=== PATIENT | female | born 1950 | race Caucasian/White ===

== ENCOUNTER → 2016-08-29 | Outpatient (CLI) | payer MEDICARE ==
--- NOTE | 2016-08-30 10:21 | MM ---
Reason for exam: screening (asymptomatic). Last mammogram was performed 3 years and 1 month ago. History: Patient is postmenopausal. Family history of breast cancer in aunt. Benign excisional biopsy of the right breast, March 17, 1998. Physical Findings: A clinical breast exam by your physician is recommended on an annual basis and results should be correlated with mammographic findings. MG 3D Screening Mammo W/Cad Bilateral CC and MLO view(s) were taken. Prior study comparison: August 12, 2013, bilateral digital screening mammo w/CAD. August 01, 2007, bilateral diagnostic digital mammog. The breast tissue is heterogeneously dense. This may lower the sensitivity of mammography. No significant changes when compared with prior studies. ASSESSMENT: Benign, BI-RAD 2 RECOMMENDATION: Routine screening mammogram of both breasts in 1 year.
--- NOTE | 2016-08-30 11:44 | BD ---
EXAMINATION TYPE: MG DEXA axial skeleton. DATE OF EXAM: 08/29/2016 3:36 PM COMPARISON: NONE CLINICAL HISTORY: Z78.0 Asymp [place] Height: 5 ft 8 in Weight: 165 FRAX RISK QUESTIONS: Alcohol (3 or more units per day): YES Family History (Parent hip fracture): NO Glucocorticoids (More than 3mos): NO (Ex: prednisone, prednisolone, methylprednisolone, dexamethasone, and hydrocortisone). History of Fracture in Adulthood: YES Secondary Osteoporosis: 1. Type 1 Diabetes: NO 2. Hyperthyroidism: NO 3. Menopause before 45: NO 4. Malnutrition: NO 5. Chronic liver disease: NO Rheumatoid Arthritis: NO Current Tobacco Use: NO RISK FACTORS HISTORY OF: Surgery to Spine/Hip(right/left)/Wrist (right/left): LT HIP REPLACED When: 2008 Drink Alcohol: RARELY Active: YES Postmenopausal woman: AGE 53 Lost more than 2 inches in height since high school: YES MEDICATIONS: Thyroid Medications: YES Which medication: SYNTHROID How Long: APPROX 15 YRS Additional History: EXAM MEASUREMENTS: Bone mineral densitometry was performed using the [employer] System. Bone mineral density as measured about the Lumbar spine is: ----- L1-L4(G/cm2): 1.141 T Score Values are as follows: ----- L2: -0.3 ----- L3: -0.6 ----- L4: -0.6 ----- L1-L4: -0.3 BASELINE Bone mineral density about the R hip (g/cm2): 0.766 T Score values are as follows: -----R Neck: -2.0 -----R Intertrochanter: -2.2 BASELINE IMPRESSION: Osteopenia (T Score between -2.5 and -1 as noted by T score values There is slightly increased risk of fracture and the patient may be considered for treatment. Re-Screen 1-2 years. RT FEMUR NOTE: T-SCORE=SD OF THE YOUNG ADULT MEAN.
== END | disposition home or self-care (01) ==
LOC: RADMAMWWP 15:31
PROVIDERS: ATTEND Family Medicine
DX: Z12.31 Encounter for screening mammogram for malignant neoplasm of breast (principal); M85.80 Other specified disorders of bone density and structure, unspecified site; Z78.0 Asymptomatic menopausal state
CPT/HCPCS: 77080; 77063; G0202

== ENCOUNTER 2017-12-12 18:42 | Emergency (ER) | payer MEDICARE ==
[2017-12-12 19:13] VITALS: BP 104/63; PULSE 81; RESP 18; TEMP 98.3
[2017-12-12] MEDS ORDERED: HYDROcodone/APAP 5-325MG 1 EACH TAB PO STA (21:15)
--- NOTE | 2017-12-12 22:09 | ED ---
General Adult HPI - General Chief complaint: Animal Bite Stated complaint: Cat Bite Time Seen by Provider: 12/12/17 21:06 Source: patient, RN notes reviewed Mode of arrival: ambulatory Limitations: no limitations - History of Present Illness Initial comments: 67-year-old female presents to the emergency department for a chief complaint of cat bite to the left forearm times 3 hours. Patient was washing her cat when he bit her in the forearm. Patient denies any difficulty moving the forearm. Patient denies any fevers or chills. Patient denies any Bites elsewhere. Patient states the cat is up-to-date on immunizations. Patient states her tetanus is up-to-date as of 4 years ago. Patient has no other complaints at this time including shortness of breath, chest pain, abdominal pain, nausea or vomiting, headache, or visual changes. - Related Data Home Medications Medication Instructions Recorded Confirmed Butalb/Acetaminophen/Caffeine 1 - 2 each PO Q4HR 09/05/14 05/12/15 [Fioricet 50-300-40 mg Capsule] Levothyroxine Sodium [Synthroid] 25 mcg PO DAILY 09/05/14 05/12/15 Zolpidem [Ambien] 10 mg PO HS PRN 09/05/14 05/12/15 Previous Rx's Medication Instructions Recorded Ondansetron Odt [Zofran ODT] 4 mg PO Q8HR PRN #10 tab 05/12/15 Doxycycline Hyclate 100 mg PO BID 14 Days tab 12/12/17 Ibuprofen [Motrin] 600 mg PO Q8HR PRN #20 tab 12/12/17 Allergies Allergy/AdvReac Type Severity Reaction Status Date / Time No Known Allergies Allergy Verified 12/12/17 19:12 Review of Systems ROS Statement: Those systems with pertinent positive or pertinent negative responses have been documented in the HPI. ROS Other: All systems not noted in ROS Statement are negative. Past Medical History Past Medical History: Thyroid Disorder Additional Past Medical History / Comment(s): chronic back pain History of Any Multi-Drug Resistant Organisms: None Reported Past Surgical History: Orthopedic Surgery, Tubal Ligation Additional Past Surgical History / Comment(s): partial thyroidectomy, cyst removal on right breast. Past Psychological History: No Psychological Hx Reported Smoking Status: Former smoker Past Alcohol Use History: Rare Past Drug Use History: None Reported General Exam Limitations: no limitations General appearance: alert, in no apparent distress Head exam: Present: atraumatic Eye exam: Present: normal appearance. Absent: scleral icterus, conjunctival injection Neck exam: Present: normal inspection, full ROM. Absent: tenderness, meningismus, lymphadenopathy Respiratory exam: Present: normal lung sounds bilaterally. Absent: respiratory distress, wheezes, rales, rhonchi, stridor Cardiovascular Exam: Present: regular rate, normal rhythm, normal heart sounds. Absent: systolic murmur, diastolic murmur, rubs, gallop, clicks Extremities exam: Present: full ROM (Full range of motion of all digits in the left digits, hand, and wrist), tenderness (Mild tenderness to the area of lacerations. no tenderness over the tendons.), normal capillary refill ( Capillary refill less than 2 seconds and radial pulse 2+ in the left upper extremity), other (Patient has 7 small puncture wounds less than 0.5 cm each left distal forearm.). Absent: pedal edema, joint swelling Course Vital Signs 12/12/17 19:10 Temperature 98.3 F Pulse Rate 81 Respiratory 18 Rate Blood Pressure 104/63 O2 Sat by Pulse 98 Oximetry Medical Decision Making - Medical Decision Making 67-year-old female presents to the emergency department for a chief complaint of cat bite in the right wrist. This happened 3 hours ago. No fevers or chills. On exam patient has full range of motion of the right upper extremity. He has about 7 small rupture wounds that will be left open to drain. Discussed the high risk of infection. Patient cannot take Augmentin because she becomes persistently nauseous and vomits. She will be given doxycycline instead as a second choice. She was educated to follow-up with primary care in a few days to have a wound recheck. She is to return to the emergency Department if she has any worsening symptoms such as drainage, spreading redness , streaking redness or fever. She is to take Motrin or Tylenol for pain. Disposition Clinical Impression: Cat bite Disposition: HOME SELF-CARE Condition: Good Instructions: Animal Bite (ED) Additional Instructions: Please take antibiotic as directed. Please take Motrin or Tylenol for pain. Please follow-up with primary care in 1-2 days for a recheck of the wound. Return to the emergency department if you have any worsening symptoms such as drainage, spreading redness, streaking redness or fever. Prescriptions: Doxycycline Hyclate 100 mg PO BID 14 Days tab Ibuprofen [Motrin] 600 mg PO Q8HR PRN #20 tab PRN Reason: Pain Is patient prescribed a controlled substance at d/c from ED?: No Referrals: Tanmay So MD [Primary Care Provider] - 1-2 days Time of Disposition: 22:07
[2017-12-12] MEDS ORDERED: DOXYCYCLINE 50 MG CAP PO STA (22:12)
== END 2017-12-12 22:23 | disposition home or self-care (01) ==
LOC: SUPCPDRO 18:42 → EC 18:42
DX: S51.832A Puncture wound without foreign body of left forearm, initial encounter (principal); E07.9 Disorder of thyroid, unspecified; Z79.899 Other long term (current) drug therapy; Z87.891 Personal history of nicotine dependence; W55.01XA Bitten by cat, initial encounter; Y93.89 Activity, other specified
CPT/HCPCS: 99283

== ENCOUNTER 2024-04-21 17:42 | Emergency (ER) | payer MEDICARE ==
[2024-04-21 17:58] VITALS: RESP 18; TEMP 97.6
--- NOTE | 2024-04-21 18:18 | ED ---
General Adult HPI - General Chief complaint: Abdominal Pain Stated complaint: flank pain Time Seen by Provider: 04/21/24 17:44 Source: patient, EMS, RN notes reviewed Mode of arrival: EMS Limitations: no limitations - History of Present Illness Initial comments: Patient is a 73-year-old female presenting to the emergency department with abdominal complaints. Onset of symptoms was around 4 PM. Patient had sudden abdominal cramping and nausea. Patient did have an episode of diarrhea. Cramping resolved after that. Patient did have nausea and 1 or 2 episodes of dry heaves with possible small emesis. Patient is feeling much better at this time following Zofran and Toradol by EMS. No fever. Patient does have history of hiatal hernia. - Related Data Home Medications Medication Instructions Recorded Confirmed Butalb/Acetaminophen/Caffeine 1 - 2 each PO Q4HR 09/05/14 05/12/15 [Fioricet 50-300-40 mg Capsule] Levothyroxine Sodium [Synthroid] 25 mcg PO DAILY 09/05/14 05/12/15 Zolpidem [Ambien] 10 mg PO HS PRN 09/05/14 05/12/15 Previous Rx's Medication Instructions Recorded Ondansetron Odt [Zofran ODT] 4 mg PO Q8HR PRN #10 tab 05/12/15 Doxycycline Hyclate 100 mg PO BID 14 Days tab 12/12/17 Ibuprofen [Motrin] 600 mg PO Q8HR PRN #20 tab 12/12/17 Dicyclomine [Bentyl] 20 mg PO QID PRN #15 tablet 04/21/24 Ondansetron Odt [Zofran Odt] 4 mg PO Q8HR PRN #10 tab 04/21/24 Allergies Allergy/AdvReac Type Severity Reaction Status Date / Time bee venom protein (honey bee) Allergy Severe Swelling Verified 04/21/24 17:58 Review of Systems ROS Statement: Those systems with pertinent positive or pertinent negative responses have been documented in the HPI. ROS Other: All systems not noted in ROS Statement are negative. Constitutional: Denies: fever Eyes: Denies: eye pain ENT: Denies: ear pain Respiratory: Denies: cough, dyspnea Cardiovascular: Denies: chest pain Endocrine: Denies: fatigue Gastrointestinal: Reports: as per HPI, nausea, vomiting, diarrhea Musculoskeletal: Denies: back pain Skin: Denies: rash Neurological: Denies: weakness Past Medical History Past Medical History: Thyroid Disorder Additional Past Medical History / Comment(s): chronic back pain History of Any Multi-Drug Resistant Organisms: None Reported Past Surgical History: Orthopedic Surgery, Tubal Ligation Additional Past Surgical History / Comment(s): partial thyroidectomy, cyst pili [place] on right breast. Past Psychological History: No Psychological Hx Reported Smoking Status: Former smoker Past Alcohol Use History: Rare Past Drug Use History: None Reported General Exam Limitations: no limitations General appearance: alert, in no apparent distress Head exam: Present: normocephalic Eye exam: Present: normal appearance Neck exam: Present: normal inspection Respiratory exam: Present: normal lung sounds bilaterally Cardiovascular Exam: Present: regular rate, normal rhythm Expanded Peripheral pulses: 2+: Radial (R), Radial (L), Posterior Tibialis (R), Posterior Tibialis (L) GI/Abdominal exam: Present: soft, normal bowel sounds. Absent: distended, tenderness, guarding, rebound, rigid, pulsatile mass Extremities exam: Present: normal inspection Neurological exam: Present: alert Psychiatric exam: Present: normal affect, normal mood Skin exam: Present: normal color Course Vital Signs 04/21/24 17:44 Temperature 97.6 F Pulse Rate 71 Respiratory 18 Rate Blood Pressure 123/72 O2 Sat by Pulse 99 Oximetry Medical Decision Making - Medical Decision Making Was pt. sent in by a medical professional or institution (Dr. PA, GETTER WELDER, urgent care, hospital, or assisted...) When possible be specific @ -No Did you speak to anyone other than the patient for history (EMS, parent, family, police, friend...)? What history was obtained from this source @ -No Did you review nursing and triage notes (agree or disagree)? Why? @ -I reviewed and agree with nursing and triage notes Were old charts reviewed (outside hosp., previous admission, EMS record, old EKG, old radiological studies, urgent care reports/EKG's, assisted records)? Report findings @ -No old charts were reviewed Differential Diagnosis (chest pain, altered mental status, abdominal pain women, abdominal pain men, vaginal bleeding, weakness, fever, dyspnea, syncope, headache, dizziness, GI bleed, back pain, seizure, CVA, palpatations, mental health, musculoskeletal)? @ -Differential Abdominal Pain Women: Appendicitis, Cholecystitis, diverticulosis, ischemic bowel, pancreatitis, hepatitis, UTI, gastroenteritis, AAA, incarcerated hernia, bowel obstruction, constipation, inflammatory bowel, hepatitis, peptic ulcer disease, splenic infa rction, perforated viscus, vulvitis, ovarian torsion, PID, kidney stone, placenta abruption, this is not meant to be an all-inclusive list EKG interpreted by me (3pts min.). @ -As above X-rays interpreted by me (1pt min.). @ -Abdominal x-ray does not reveal any acute abnormality CT interpreted by me (1pt min.). @ -None done U/S interpreted by me (1pt. min.). @ -None done What testing was considered but not performed or refused? (CT, X-rays, U/S, labs)? Why? @ -None What meds were considered but not given or refused? Why? @ -None Did you discuss the management of the patient with other professionals (professionals i.e. , PA, GETTER WELDER, lab, RT, psych nurse, manager social media, sports book writer, teacher, immigration officer, case resource manager)? Give summary @ -No Was smoking cessation discussed for >3mins.? @ -No Was critical care preformed (if so, how long)? @ -No Were there social determinants of health that impacted care today? How? (Homelessness, low income, unemployed, alcoholism, drug addiction, natarajan sportation, low edu. Level, literacy, decrease access to med. care, custodial, rehab)? @ -No Was there de-escalation of care discussed even if they declined (Discuss DNR or withdrawal of care, Hospice)? DNR status @ -No What co-morbidities impacted this encounter? (DM, HTN, Smoking, COPD, CAD, Cancer, CVA, ARF, Chemo, Hep., AIDS, mental health diagnosis, sleep apnea, morbid obesity)? @ -None Was patient admitted / discharged? Hospital course, mention meds given and route, prescriptions, significant lab abnormalities, going to OR and other pertinent info. @ -Patient presents with abdominal cramping, diarrhea and nausea. Symptoms improved on arrival. Symptoms resolved on reevaluation. Abdomen is soft and nontender. Patient will be discharged and recommended follow-up Undiagnosed new problem with uncertain prognosis? @ -No Drug Therapy requiring intensive monitoring for toxicity (Heparin, Nitro, Insulin, Cardizem)? @ -No Were any procedures done? @ -No Diagnosis/symptom? @ -Diarrhea Acute, or Chronic, or Acute on Chronic? @ -Acute Uncomplicated (without systemic symptoms) or Complicated (systemic symptoms)? @ -Default Side effects of treatment? @ -No Exacerbation, Progression, or Severe Exacerbation? @ -No Poses a threat to life or bodily function? How? (Chest pain, [place], MA, pneumonia, PE, COPD, DKA, ARF, appy, cholecystitis, CVA, Diverticulitis, Homicidal, Suicidal, threat to staff... and all critical care pts) @ -No - Lab Data Result diagrams: 04/21/24 18:25 04/21/24 18:25 Lab Results 04/21/24 04/21/24 04/21/24 Range/Units 18:25 18:25 18:40 WBC 11.0 H (3.8-10.6) k/uL RBC 4.42 (3.80-5.40) m/uL Hgb 13.2 (11.4-16.0) gm/dL Hct 40.8 (34.0-46.0) % MCV 92.1 (80.0-100.0) fL MCH 29.9 (25.0-35.0) pg MCHC 32.4 (31.0-37.0) g/dL RDW 12.6 (11.5-15.5) % Plt Count 331 (150-450) k/uL MPV 6.5 Neutrophils % 76 % Lymphocytes % 18 % Monocytes % 4 % Eosinophils % 1 % Basophils % 0 % Neutrophils # 8.3 H (1.3-7.7) k/uL Lymphocytes # 2.0 (1.0-4.8) k/uL Monocytes # 0.5 (0-1.0) k/uL Eosinophils # 0.1 (0-0.7) k/uL Basophils # 0.0 (0-0.2) k/uL Sodium 135 L (137-145) mmol/L Potassium 4.3 (3.5-5.1) mmol/L Chloride 107 (98-107) mmol/L Carbon Dioxide 19 L (22-30) mmol/L Anion Gap 9 mmol/L BUN 26 H (7-17) mg/dL Creatinine 0.82 (0.52-1.04) mg/dL Est GFR (CKD-EPI)AfAm 82 (>60 ml/min/1.73 sqM) Est GFR (CKD-EPI)NonAf 71 (>60 ml/min/1.73 sqM) Glucose 113 H (74-99) mg/dL Calcium 9.2 (8.4-10.2) mg/dL Total Bilirubin 0.8 (0.2-1.3) mg/dL AST 23 (14-36) U/L ALT 14 (4-34) U/L Alkaline Phosphatase 66 (38-126) U/L Total Protein 7.0 (6.3-8.2) g/dL Albumin 4.2 (3.5-5.0) g/dL Amylase 76 (30-110) U/L Lipase 75 (23-300) U/L Urine Color Light Yellow Urine Appearance Clear (Clear) Urine pH 6.0 (5.0-8.0) Ur Specific [place] 1.025 (1.001-1.035) Urine Protein Trace H (Negative) Urine Glucose (UA) Negative (Negative) Urine Ketones 2+ H (Negative) Urine Blood Moderate H (Negative) Urine Nitrite Negative (Negative) Urine Bilirubin Negative (Negative) Urine Urobilinogen <2.0 (<2.0) mg/dL Ur Leukocyte Esterase Negative (Negative) Urine RBC 27 H (0-5) /hpf Urine WBC 3 (0-5) /hpf Ur Squamous Epith Cells 2 (0-4) /hpf Calcium Oxalate Crystal Few H (None) /hpf Urine Mucus Moderate H (None) /hpf Disposition Clinical Impression: Diarrhea Disposition: HOME SELF-CARE Condition: Stable Instructions (If sedation given, give patient instructions): Acute Nausea and Vomiting (ED), Acute Diarrhea (ED) Additional Instructions: Prescription sent to pharmacy. Please do follow-up with your primary care physician in the next day or 2 for recheck. Return for fever, increased pain, not tolerating oral intake, worsening symptoms or other concerns. Prescriptions: Dicyclomine [Bentyl] 20 mg PO QID PRN #15 tablet PRN Reason: Pain Ondansetron Odt [Zofran Odt] 4 mg PO Q8HR PRN #10 tab PRN Reason: Nausea Is patient prescribed a controlled substance at d/c from ED?: No Referrals: Aryan Love MD [Primary Care Provider] - 1-2 days Time of Disposition: 19:32
[2024-04-21] MEDS: SODIUM CHLORIDE 0.9% 1,000 ML IV STA (18:30)
[2024-04-21 18:32] LABS: Basophils % (A) 0 %; Eosinophils # (A) 0.1 k/uL (0-0.7); Eosinophils % (A) 1 %; HCT 40.8 % (34.0-46.0); HGB 13.2 gm/dL (11.4-16.0); Lymphocytes % (A) 18 %; MCH 29.9 pg (25.0-35.0); MCHC 32.4 g/dL (31.0-37.0); MCV 92.1 fL (80.0-100.0); Mean Platelet Volume 6.5; Monocytes # (A) 0.5 k/uL (0-1.0); Monocytes % (A) 4 %; Neutrophils # (A) 8.3 k/uL (1.3-7.7); Neutrophils % (A) 76 %; Platelet Count 331 k/uL (150-450); RBC 4.42 m/uL (3.80-5.40); RDW 12.6 % (11.5-15.5)
[2024-04-21] MEDS: FAMOTIDINE 20 MG/2 ML VIAL IV STA (18:33)
[2024-04-21] MEDS: DICYCLOMINE 10 MG/ML 2 ML AMP IM STA (18:38)
[2024-04-21 18:57] LABS: Appearance,Urine Clear (Clear); Bilirubin,Urine Negative (Negative); Blood,Urine Moderate (Negative); Calcium Oxalate Crystals,Urine Few /hpf; Color,Urine Light Yellow; Glucose,Urine (UA) Negative (Negative); Ketones,Urine 2+ (Negative); Leukocyte Esterase,Urine Negative (Negative); Mucus,Urine Moderate /hpf; Nitrite,Urine Negative (Negative); Protein,Urine Trace (Negative); RBC,Urine 27 /hpf (0-5); Specific Gravity,Urine 1.025 (1.001-1.035); Squamous Epithelial Cell,Urine 2 /hpf (0-4); Urobilinogen,Urine <2.0 mg/dL (<2.0); WBC,Urine 3 /hpf (0-5)
[2024-04-21 18:59] LABS: ALT 14 U/L (4-34); AST 23 U/L (14-36); African American GFR (CKD) 82 (>60 ml/min/1.73 sqM); Albumin 4.2 g/dL (3.5-5.0); Alkaline Phosphatase 66 U/L (38-126); Amylase 76 U/L (30-110); Anion Gap 9 mmol/L; Blood Urea Nitrogen 26 mg/dL (7-17); Calcium 9.2 mg/dL (8.4-10.2); Carbon Dioxide 19 mmol/L (22-30); Chloride 107 mmol/L (98-107); Glucose 113 mg/dL (74-99); Lipase 75 U/L (23-300); Non-African American GFR(CKD) 71 (>60 ml/min/1.73 sqM); Potassium 4.3 mmol/L (3.5-5.1); Sodium 135 mmol/L (137-145); Total Bilirubin 0.8 mg/dL (0.2-1.3)
--- NOTE | 2024-04-21 19:05 | XR ---
EXAMINATION TYPE: XR KUB DATE OF EXAM: 04/21/2024 6:53 PM COMPARISON: None. CLINICAL INDICATION: Female, 73 years old with history of abdominal pain, TECHNIQUE: XR KUB view(s) obtained. FINDINGS: Minimal colonic bowel gas is on the ascending colon. No mass effect is evident. No free air is eviden t. Psoas margins are normal. No organomegaly is present. IMPRESSION: 1. Nonspecific abdomen. [facility], Workstation: [facility], 04/21/2024 7:03 PM
[2024-04-21 20:06] VITALS: BP 133/89; PULSE 75
== END 2024-04-21 20:06 | disposition home or self-care (01) ==
LOC: EC 17:42
DX: R19.7 Diarrhea, unspecified (principal); Z87.891 Personal history of nicotine dependence; Z91.030 Bee allergy status
CPT/HCPCS: 99284; 96374; 96361 ×2; 96372; 36415; 80053; 82150; 83690; 85025; 81001; 74018; J0500; J3490

== ENCOUNTER 2024-05-21 07:12 | Emergency (ER) | payer MEDICARE ==
[2024-05-21 07:43] LABS: Basophils % (A) 0 %; Eosinophils # (A) 0.2 k/uL (0-0.7); Eosinophils % (A) 2 %; HCT 43.1 % (34.0-46.0); HGB 14.1 gm/dL (11.4-16.0); Lymphocytes # (A) 2.4 k/uL (1.0-4.8); Lymphocytes % (A) 36 %; MCH 29.9 pg (25.0-35.0); MCHC 32.6 g/dL (31.0-37.0); MCV 91.7 fL (80.0-100.0); Mean Platelet Volume 6.7; Monocytes # (A) 0.4 k/uL (0-1.0); Monocytes % (A) 5 %; Neutrophils # (A) 3.6 k/uL (1.3-7.7); Neutrophils % (A) 55 %; Platelet Count 326 k/uL (150-450); RDW 13.1 % (11.5-15.5); WBC 6.7 k/uL (3.8-10.6)
[2024-05-21 08:01] LABS: ALT 16 U/L (4-34); AST 22 U/L (14-36); African American GFR (CKD) >90 (>60 ml/min/1.73 sqM); Albumin 4.7 g/dL (3.5-5.0); Alkaline Phosphatase 62 U/L (38-126); Amylase 65 U/L (30-110); Anion Gap 9 mmol/L; Blood Urea Nitrogen 10 mg/dL (7-17); Calcium 10.2 mg/dL (8.4-10.2); Carbon Dioxide 25 mmol/L (22-30); Chloride 104 mmol/L (98-107); Glucose 126 mg/dL (74-99); Lipase 57 U/L (23-300); Non-African American GFR(CKD) 86 (>60 ml/min/1.73 sqM); Potassium 4.4 mmol/L (3.5-5.1); Sodium 138 mmol/L (137-145); Total Bilirubin 0.7 mg/dL (0.2-1.3); Total Protein 7.9 g/dL (6.3-8.2)
[2024-05-21 08:25] LABS: Appearance,Urine Clear (Clear); Bilirubin,Urine Negative (Negative); Blood,Urine Negative (Negative); Color,Urine Yellow; Glucose,Urine (UA) Negative (Negative); Ketones,Urine 1+ (Negative); Leukocyte Esterase,Urine Moderate (Negative); Mucus,Urine Many /hpf; Nitrite,Urine Negative (Negative); PH, Urine 5.5 (5.0-8.0); Protein,Urine 1+ (Negative); Specific Gravity,Urine 1.029 (1.001-1.035); Squamous Epithelial Cell,Urine 3 /hpf (0-4); Urobilinogen,Urine <2.0 mg/dL (<2.0); WBC,Urine 7 /hpf (0-5)
--- NOTE | 2024-05-21 08:30 | ED ---
General Adult HPI - General Chief complaint: Abdominal Pain Stated complaint: Nausea, vomiting Time Seen by Provider: 05/21/24 08:25 Source: patient, RN notes reviewed Mode of arrival: ambulatory Limitations: no limitations - History of Present Illness Initial comments: This is a 73-year-old female with a history of hypothyroidism presenting to the emergency department chief complaint of right upper quadrant abdominal pain with associated intermittent nausea and an episode of emesis that occurred prior to arrival. 2 weeks ago she had intense right upper quadrant abdominal pain with severe nausea and vomiting where workup was obtained including a ultrasound of her gallbladder that was consistent with gallstones, no evidence of acute cholecystitis. prior to arrival she began to experience a dull, non-radiating, pressure of her right upper quadrant that felt similar as when she had her pain 2 weeks ago however this pain was less intense and had a episode of nonbloody nonbilious emesis. She denies chest pain, shortness of breath, difficulty b reathing, fevers, chills, urinary or bowel habit changes. Denies previous surgical abdominal history. appointment scheduled outpatient with her primary care provider for follow up of US in 1 week. - Related Data Home Medications Medication Instructions Recorded Confirmed Butalb/Acetaminophen/Caffeine 1 - 2 each PO Q4HR 09/05/14 05/12/15 [Fioricet 50-300-40 mg Capsule] Levothyroxine Sodium [Synthroid] 25 mcg PO DAILY 09/05/14 05/12/15 Zolpidem [Ambien] 10 mg PO HS PRN 09/05/14 05/12/15 Previous Rx's Medication Instructions Recorded Ondansetron Odt [Zofran ODT] 4 mg PO Q8HR PRN #10 tab 05/12/15 Doxycycline Hyclate 100 mg PO BID 14 Days tab 12/12/17 Ibuprofen [Motrin] 600 mg PO Q8HR PRN #20 tab 12/12/17 Dicyclomine [Bentyl] 20 mg PO QID PRN #15 tablet 04/21/24 Ondansetron Odt [Zofran Odt] 4 mg PO Q8HR PRN #10 tab 04/21/24 Dicyclomine [Bentyl] 20 mg PO QID PRN #15 tablet 04/24/24 Ondansetron Odt [Zofran Odt] 4 mg PO Q8HR PRN #10 tab 04/24/24 Ondansetron Odt [Zofran Odt] 4 mg PO Q8HR PRN #10 tab 05/21/24 Allergies Allergy/AdvReac Type Severity Reaction Status Date / Time bee venom protein (honey bee) Allergy Severe Swelling Verified 05/21/24 07:17 Review of Systems ROS Statement: Those systems with pertinent positive or pertinent negative responses have been documented in the HPI. ROS Other: All systems not noted in ROS Statement are negative. Past Medical History Past Medical History: Thyroid Disorder Additional Past Medical History / Comment(s): chronic back pain History of Any Multi-Drug Resistant Organisms: None Reported Past Surgical History: Orthopedic Surgery, Tubal Ligation Additional Past Surgical History / Comment(s): partial thyroidectomy, cyst removal on right breast. Past Psychological History: No Psychological Hx Reported Smoking Status: Former smoker Past Alcohol Use History: Rare Past Drug Use History: None Reported General Exam Limitations: no limitations General appearance: alert, in no apparent distress ENT exam: Present: normal exam, mucous membranes moist Neck exam: Present: normal inspection. Absent: tenderness, meningismus, lymphadenopathy Respiratory exam: Present: normal lung sounds bilaterally. Absent: respiratory distress, wheezes, rales, rhonchi, stridor Cardiovascular Exam: Present: regular rate, normal rhythm, normal heart sounds. Absent: systolic murmur, diastolic murmur, rubs, gallop, clicks GI/Abdominal exam: Present: soft, tenderness (RUQ, mild to palpation, negative murphys sign), normal bowel sounds. Absent: distended, guarding, rebound, rigid Extremities exam: Present: normal inspection, full ROM, normal capillary refill. Absent: tenderness, pedal edema, joint swelling, calf tenderness Back exam: Present: normal inspection Course Vital Signs 05/21/24 05/21/24 05/21/24 07:14 09:50 10:20 Temperature 97.3 F L 97.6 F Pulse Rate 78 67 65 Respiratory 18 17 16 Rate Blood Pressure 118/72 113/63 113/71 O2 Sat by Pulse 99 97 97 Oximetry Medical Decision Making - Medical Decision Making Was pt. sent in by a medical professional or institution (, PA, ENGINEERING GROUP MANAGER, urgent care, hospital, or jail...) When possible be specific @ -No Did you speak to anyone other than the patient for history (EMS, parent, family, police, friend...)? What history was obtained from this source @ -No Did you review nursing and triage notes (agree or disagree)? Why? @ -I reviewed and agree with nursing and triage notes Were old charts reviewed (outside hosp., previous admission, EMS record, old EKG, old radiological studies, urgent care reports/EKG's, jail records)? Report findings @ -No old charts were reviewed Differential Diagnosis (chest pain, altered mental status, abdominal pain women, abdominal pain men, vaginal bleeding, weakness, fever, dyspnea, syncope, headache, dizziness, GI bleed, back pain, seizure, CVA, palpatations, mental health, musculoskeletal)? @ -Differential Abdominal Pain Women: Appendicitis, Cholecystitis, diverticulosis, ischemic bowel, pancreatitis, hepatitis, UTI, gastroenteritis, AAA, incarcerated hernia, bowel obstruction, constipation, inflammatory bowel, hepatitis, peptic ulcer disease, splenic infarction, perforated viscus, vulvitis, ovarian torsion, PID, kidney stone, kevin centa abruption, this is not meant to be an all-inclusive list EKG interpreted by me (3pts min.). @ -None X-rays interpreted by me (1pt min.). @ -None done CT interpreted by me (1pt min.). @ -None done U/S interpreted by me (1pt. min.). @ -None done What testing was considered but not performed or refused? (CT, X-rays, U/S, labs)? Why? @ -Ultrasound imaging and CT was conservative for this time. Patient has very mild tenderness of the right upper quadrant negative Bello sign. Patient had recent ultrasound completed outpatient consistent with cholelithiasis. Additionally, laboratory testing is within normal limits. Patient did agree with deferring CT imaging at this time. What meds were considered but not given or refused? Why? @ -None Did you discuss the management of the patient with other professionals (professionals i.e. , PA, ENGINEERING GROUP MANAGER, lab, RT, psych nurse, social service coordinator, livestock trucker, teacher, air crew officer, telephonic case manager)? Give summary @ -No Was smoking cessation discussed for >3mins.? @ -No Was critical care preformed (if so, how long)? @ -No Were there social determinants of health that impacted care today? How? (Homelessness, low income, unemployed, alcoholism, drug addiction, transportation, low edu. Level, literacy, decrease access to med. care, alf, rehab)? @ -No Was there de-escalation of care discussed even if they declined (Discuss DNR or withdrawal of care, Hospice)? DNR status @ -No What co-morbidities impacted this encounter? (DM, HTN, Smoking, COPD, CAD, Canc er, CVA, ARF, Chemo, Hep., AIDS, mental health diagnosis, sleep apnea, morbid obesity)? @ -None Was patient admitted / discharged? Hospital course, mention meds given and route, prescriptions, significant lab abnormalities, going to OR and other pertinent info. @ -Discharge. 73-year-old female presenting with right upper quad abdominal pain with associated nausea and vomiting. Triage orders were placed. On my evaluation the patient is resting company no signs acute distress. Vitals are stable. Is noted to have mild tenderness to the right upper quadrant with no signs of rebound tenderness or rigidity. Bello sign is negative. She is provided with antiemetics and Toradol pending laboratory evaluation. Imaging is deferred at this time as patient had recent right upper quadrant ultrasound was consistent with Svetlana lithiasis and pain is minimal at this time. Patient's agree with deferring imaging. Laboratory test including CBC, CMP, urinalysis, viral swab within normal limits unremarkable. On reevaluation after medication ministration and states that symptoms have improved. Patient does have follow- up with her primary care provider within the next week. She is in a prescription for Zofran to take as needed for intermittent nausea. Case discussed with Dr. Santos Undiagnosed new problem with uncertain prognosis? @ -No Drug Therapy requiring intensive monitoring for toxicity (Heparin, Nitro, Insulin, Cardizem)? @ -No Were any procedures done? @ -No Diagnosis/symptom? @ -biliary colic Acute, or Chronic, or Acute on Chronic? @ -Acute Uncomplicated (without systemic symptoms) or Complicated (systemic symptoms)? @ -Uncomplicated Side effects of treatment? @ -No Exacerbation, Progression, or Severe Exacerbation? @ -No Poses a threat to life or bodily function? How? (Chest pain, USA, ND, pneumonia, PE, COPD, DKA, ARF, appy, cholecystitis, CVA, Diverticulitis, Homicidal, Suicidal, threat to staff... and all critical care pts) @ -No - Lab Data Result diagrams: 05/21/24 07:37 05/21/24 07:37 Lab Results 05/21/24 05/21/24 05/21/24 Range/Units 07:21 07:37 07:37 WBC 6.7 (3.8-10.6) k/uL RBC 4.70 (3.80-5.40) m/uL Hgb 14.1 (11.4-16.0) gm/dL Hct 43.1 (34.0-46.0) % MCV 91.7 (80.0-100.0) fL MCH 29.9 (25.0-35.0) pg MCHC 32.6 (31.0-37.0) g/dL RDW 13.1 (11.5-15.5) % Plt Count 326 (150-450) k/uL MPV 6.7 Neutrophils % 55 % Lymphocytes % 36 % Monocytes % 5 % Eosinophils % 2 % Basophils % 0 % Neutrophils # 3.6 (1.3-7.7) k/uL Lymphocytes # 2.4 (1.0-4.8) k/uL Monocytes # 0.4 (0-1.0) k/uL Eosinophils # 0.2 (0-0.7) k/uL Basophils # 0.0 (0-0.2) k/uL Sodium 138 (137-145) mmol/L Potassium 4.4 (3.5-5.1) mmol/L Chloride 104 (98-107) mmol/L Carbon Dioxide 25 (22-30) mmol/L Anion Gap 9 mmol/L BUN 10 (7-17) mg/dL Creatinine 0.69 (0.52-1.04) mg/dL Est GFR (CKD-EPI)AfAm >90 (>60 ml/min/1.73 sqM) Est GFR (CKD-EPI)NonAf 86 (>60 ml/min/1.73 sqM) Glucose 126 H (74-99) mg/dL Calcium 10.2 (8.4-10.2) mg/dL Total Bilirubin 0.7 (0.2-1.3) mg/dL AST 22 (14-36) U/L ALT 16 (4-34) U/L Alkaline Phosphatase 62 (38-126) U/L Total Protein 7.9 (6.3-8.2) g/dL Albumin 4.7 (3.5-5.0) g/dL Amylase 65 (30-110) U/L Lipase 57 (23-300) U/L Urine Color Urine Appearance (Clear) Urine pH (5.0-8.0) Ur Specific [place] (1.001-1.035) Urine Protein (Negative) Urine Glucose (UA) (Negative) Urine Ketones (Negative) Urine Blood (Negative) Urine Nitrite (Negative) Urine Bilirubin (Negative) Urine Urobilinogen (<2.0) mg/dL Ur Leukocyte Esterase (Negative) Urine WBC (0-5) /hpf Ur Squamous Epith Cells (0-4) /hpf Urine Mucus (None) /hpf Influenza Type A (PCR) Not Detected (Not Detectd) Influenza Type B (PCR) Not Detected (Not Detectd) RSV (PCR) Not Detected (Not Detectd) SARS-CoV-2 (PCR) Not Detected (Not Detectd) 05/21/24 Range/Units 07:52 WBC (3.8-10.6) k/uL RBC (3.80-5.40) m/uL Hgb (11.4-16.0) gm/dL Hct (34.0-46.0) % MCV (80.0-100.0) fL MCH (25.0-35.0) pg MCHC (31.0-37.0) g/dL RDW (11.5-15.5) % Plt Count (150-450) k/uL MPV Neutrophils % % Lymphocytes % % Monocytes % % Eosinophils % % Basophils % % Neutrophils # (1.3-7.7) k/uL Lymphocytes # (1.0-4.8) k/uL Monocytes # (0-1.0) k/uL Eosinophils # (0-0.7) k/uL Basophils # (0-0.2) k/uL Sodium (137-145) mmol/L Potassium (3.5-5.1) mmol/L Chloride (98-107) mmol/L Carbon Dioxide (22-30) mmol/L Anion Gap mmol/L BUN (7-17) mg/dL Creatinine (0.52-1.04) mg/dL Est GFR (CKD-EPI)AfAm (>60 ml/min/1.73 sqM) Est GFR (CKD-EPI)NonAf (>60 ml/min/1.73 sqM) Glucose (74-99) mg/dL Calcium (8.4-10.2) mg/dL Total Bilirubin (0.2-1.3) mg/dL AST (14-36) U/L ALT (4-34) U/L Alkaline Phosphatase (38-126) U/L Total Protein (6.3-8.2) g/dL Albumin (3.5-5.0) g/dL Amylase (30-110) U/L Lipase (23-300) U/L Urine Color Yellow Urine Appearance Clear (Clear) Urine pH 5.5 (5.0-8.0) Ur Specific [place] 1.029 (1.001-1.035) Urine Protein 1+ H (Negative) Urine Glucose (UA) Negative (Negative) Urine Ketones 1+ H (Negative) Urine Blood Negative (Negative) Urine Nitrite Negative (Negative) Urine Bilirubin Negative (Negative) Urine Urobilinogen <2.0 (<2.0) mg/dL Ur Leukocyte Esterase Moderate H (Negative) Urine WBC 7 H (0-5) /hpf Ur Squamous Epith Cells 3 (0-4) /hpf Urine Mucus Many H (None) /hpf Influenza Type A (PCR) (Not Detectd) Influenza Type B (PCR) (Not Detectd) RSV (PCR) (Not Detectd) SARS-CoV-2 (PCR) (Not Detectd) Disposition Clinical Impression: Biliary colic Disposition: HOME SELF-CARE Condition: Good Instructions (If sedation given, give patient instructions): Biliary Colic (ED) Additional Instructions: Please return to the Emergency Department if symptoms worsen or any other concerns. Prescriptions: Ondansetron Odt [Zofran Odt] 4 mg PO Q8HR PRN #10 tab PRN Reason: Nausea Is patient prescribed a controlled substance at d/c from ED?: No Referrals: Aide Cali MD [Primary Care Provider] - 1-2 days Time of Disposition: 10:10
--- NOTE | 2024-05-21 08:49 | XR ---
EXAMINATION TYPE: XR KUB DATE OF EXAM: 05/21/2024 8:18 AM COMPARISON: 04/21/2024 CLINICAL INDICATION: Female, 73 years old with history of abdominal pain, , FINDINGS: Lung bases are clear. No evidence for free intraperitoneal air. No dilated small bowel or air-fluid l evels. Minimal scattered stool. Scattered colonic air is present. A couple left-sided pelvic phleboli ths. Mild degenerative change right hip and partially visualized left hip arthroplasty. IMPRESSION: No evidence for free air or bowel obstruction. Minimal scattered stool. [facility], , 05/21/2024 8:47 AM
[2024-05-21] MEDS: ONDANSETRON 4 MG/2 ML VIAL IVP STA (09:50)
[2024-05-21] MEDS: KETOROLAC 15 MG/ML 1 ML VIAL IVP STA (09:53)
[2024-05-21 10:44] VITALS: BP 113/71; PULSE 65; RESP 16; TEMP 97.6
== END 2024-05-21 10:54 | disposition home or self-care (01) ==
LOC: EC 07:12
DX: K80.50 Calculus of bile duct without cholangitis or cholecystitis without obstruction (principal); Z87.891 Personal history of nicotine dependence; Z91.030 Bee allergy status; Z11.52 Encounter for screening for COVID-19
CPT/HCPCS: 36415; 80053; 82150; 83690; 85025; 81001; 87636; 74018; 99284; 96374; 96375; J2405; J1885